=== PATIENT | male | born 1970 | race Caucasian/White ===

== ENCOUNTER 2020-04-07 06:30 | Day surgery (SDC) | payer BC ==
[~2020-04-07] VITALS: Ht 185.4 cm; Wt 138.6 kg
--- NOTE | ~2020-04-07 | OP ---
PATIENT NAME: TRISTAN GALVAN MEDICAL RECORD: [id number] [facility] ADMISSION DATE: SURGEON: JUAN DANIEL MCCANN MD DATE OF OPERATION: 04/07/2020 PREOPERATIVE DIAGNOSIS: Impingement syndrome of the right shoulder. POSTOPERATIVE DIAGNOSIS: Impingement syndrome of the right shoulder. PROCEDURES: 1. Right shoulder arthroscopic distal clavicle excision done through separate incision - 1 cm. 2. Arthroscopic subacromial decompression with acromioplasty and bursectomy. SURGEON: Juan Daniel Mccann MD ANESTHESIA: General. INTRAOPERATIVE COMPLICATIONS: None. SUMMARY OF PATHOLOGIC FINDINGS: The patient did not have a full thickness rotator cuff tear, although he did have severe excoriation of the coracoacromial ligament as well as acromioclavicular joint. He did have mild biceps tendonitis; however, I felt like biceps preservation was more optimal than tenotomy or tenodesis. OPERATIVE SUMMARY IN DETAIL: After obtaining the appropriate preoperative orthopedic surgery consent as well as anesthetic consultation, evaluation and clearance, the patient was brought to the operating room and placed on the operating table in a supine position. After general laryngeal mask airway was administered, the patient was placed in a left lateral decubitus position. All pressure points were well padded to include down leg peroneal pad as well as the axillary roll. The patient was held firmly to the operating table using the vacuum pack suction system. Right upper extremity and shoulder were prepped and draped in routine sterile fashion. The arm was held in the Arthrex traction boom at 30 degrees of forward flexion, 30 degrees of abduction, 10 pounds of traction laterally. Arthroscopy was established in the glenohumeral joint from posterior portal. Anterior portal was established in the anterior safe interval. Diagnostic arthroscopy showed the patient to have some mild biceps tendinitis. Biceps-labral junction was in good continuity. Attention was then turned to the subacromial space. While on subacromial space, accessory lateral portal was created for introduction of the Cassandra tissue ablation system, which was utilized to denude the undersurface of the acromion of all soft tissue elements and release of the coracoacromial ligament. A 5.0 barrel bur was then used to perform acromioplasty at the level of acromioclavicular joint. Through a separate arthroscopic anterior portal, distal clavicle was excised for 1 cm and then the residual bursitis was taken down superiorly, anteriorly, laterally and posteriorly to complete the bursectomy. Having completed this, arthroscopy portals were closed in routine interrupted fashion using 4-0 Prolene. Sterile dressings were applied. The patient was awakened and taken to recovery room in stable condition. All final needle and sponge counts were correct. TRANSINT:[id number] Voice Confirmation ID: [id number] DOCUMENT ID: [id number] OPERATIVE REPORT [id number] TRISTAN GALVAN MD, JUAN DANIEL KURTZ CC: [id number] DICTATION DATE: 04/15/20 1316 [employer] MEMBER: 04/15/20 1429 [facility] 04/07/20 [id number] [place] [address]
[2020-04-07 06:57] VITALS: BP 168/119; Ht 185.4 cm; Wt 138.6 kg
[2020-04-07] MEDS ORDERED: HYDROCODON-ACE1 EA10 PO (09:50)
== END 2020-04-07 11:14 | disposition home or self-care (01) ==
LOC: D.OPS 06:30 → D.PAN 09:45 → D.OPS 09:45
PROVIDERS: ATTEND Orthopaedic Surgery
DX: M25.511 Pain in right shoulder (principal); M75.101 Unspecified rotator cuff tear or rupture of right shoulder, not specified as traumatic; M75.21 Bicipital tendinitis, right shoulder; M75.41 Impingement syndrome of right shoulder; M13.811 Other specified arthritis, right shoulder